=== PATIENT | female | born 1980 | race Two or more races ===

== ENCOUNTER 2025-07-09 01:11 | Emergency (ER) | payer BC, SELFPAY ==
[2025-07-09 01:11] VITALS: BMI 31.1
[2025-07-09 01:21] VITALS: BP 164/102; BP 169/106; PULSE 79; RESP 18; TEMP 36.8; O2SAT 99
[2025-07-09] MEDS: METOCLOPRAMIDE 5 MG TABLET 10 MG PO (03:06)
[2025-07-09] MEDS: SUMAtriptan INJ 6 MG/0.5 ML VIAL SC (03:10)
[2025-07-09 04:18] VITALS: BP 169/101; PULSE 75; RESP 18; TEMP 36.9; O2SAT 99
--- NOTE | 2025-07-09 05:08 | PD.EDNECK ---
ED Neck Injury Pain RME/HPI General Chief Complaint: Neck Pain/Injury Stated Complaint: NECK PAIN Time Seen by Provider: 07/09/25 02:40 Arrival date/time: 07/09/25 01:11 45F with no significant PMH presents to ED with several days of R-sided head/neck pain that is worse with movement. Patient denies fall/trauma, fevers/chills, neck swelling, and URI symptoms. Limitations: no limitations Related Data Home Medications ?Medication ?Instructions ?Recorded ?Confirmed atorvastatin 10 mg tablet 10 mg PO QDAY 01/16/19 07/01/19 ferrous fumarate 325 mg (106 mg 325 mg PO QDAY 01/16/19 07/01/19 iron) tablet metoprolol succinate 50 mg capsule 50 mg PO BID 01/16/19 07/01/19 sprinkle, ext. release 24 hr ibuprofen 800 mg tablet 800 mg PO TID PRN Pain 06/30/19 07/01/19 Previous Rx's ?Medication ?Instructions ?Recorded naproxen 500 mg tablet,delayed 500 mg PO BID PRN pain #30 tabs 01/16/19 release (EC-Naproxen) hydrocodone 5 mg-acetaminophen 325 1 tab PO Q4H PRN pain #30 tabs 07/01/19 mg tablet (Crescent) ibuprofen 600 mg tablet 600 mg PO Q6H #30 tabs 10/21/22 Allergies Allergy/AdvReac Type Severity Reaction Status Date / Time No Known Allergies Allergy Verified 07/09/25 01:11 Review of Systems Review of Systems Systems Reviewed: All systems reviewed, normal except as documented Constitutional Constitutional: Reports as per HPI and Reports headache(s) ENT Ears, Nose, Mouth, and Throat: Reports headache(s) and Reports neck pain Musculoskeletal Musculoskeletal: Reports as per HPI and Reports neck pain Neurologic Neurologic: Reports headache(s) Past Medical History Past Medical History NEUROLOGIC: Negative Neurological Disorders or Seizures CARDIAC: Positive Cardiac Disorders, Hypercholesterolemia and Hypertension; Negative Congestive Heart Failure RESPIRATORY: Negative Chronic Obstructive Pulmonary Disease (COPD) GASTROINTESTINAL: Negative Gastrointestinal Disorders or Hepatitis GENITOURINARY: Negative Genitourinary Disorders or Renal Disease REPRODUCTIVE: Positive Previous Pregnancies (X3) MUSCULOSKELETAL: Negative Musculoskeletal Disorders ENDOCRINE: Negative Endocrine Disorders, Diabetes Mellitus Type 1 or Diabetes Mellitus Type 2 HEMATOLOGIC: Positive Anemia; Negative Blood Disorders OTHER HISTORY: Positive Chicken Pox; Negative Hospitalization, Autoimmune Disease, Shingles, Falls, Blood Transfusions, Blood Transfusion Reaction, Anesthesia Reactions, Chemotherapy, Radiation Therapy, MRSA, Measles, Mumps or Cancer Family History FAMILY HISTORY: Positive Family Psychiatric Problems (MOTHER,), Family Cardiac Disorders (MOTHER (HTN,CVA)) and Family Cancer (MOTHER (THYROID)); Negative Family Respiratory Disorders, Family Gastrointestinal Problems, Family Surgery or Family Anesthesia Reaction Surgical History SURGICAL: Positive Section (X2) Social History SMOKING STATUS: Never smoker ED Exam General Limitations: Present no limitations General appearance: Present alert and in no apparent distress Head Head exam: Present atraumatic ENT ENT exam: Present normal exam, normal oropharynx and mucous membranes moist Neck Neck exam: Present normal inspection, full ROM and trachea midline Chest Chest inspection: Present normal inspection and symmetric chest wall rise Neurological Exam Neurological exam: Present alert and oriented X3 Psychiatric Psychiatric exam: Present normal affect and normal mood Skin Skin exam: Present warm, dry, intact and normal color Course Quality Measures none Orders Category Date Time Status Metoclopramide [Reglan] Med 07/09/25 02:40 Discontinued 10 mg PO X1 ONE SUMAtriptan INJ [Imitrex Inj] Med 07/09/25 02:40 Discontinued 6 mg SC X1 ONE Vital Signs Vital signs: Vital Signs Temperature 98.3 F 07/09/25 01:21 Pulse Rate 79 07/09/25 01:21 Respiratory Rate 18 07/09/25 01:21 Blood Pressure 164/102 H 07/09/25 01:21 Pulse Oximetry (%) 99 07/09/25 01:21 Oxygen Delivery Method Room Air 07/09/25 01:21 O2 at 99% on RA and WNLs Neck Pain MDM Narrative MDM Narrative:: 45F with no significant PMH presents to ED with several days of R-sided head/neck pain that is worse with movement. Patient denies fall/trauma, fevers/chills, neck swelling, and URI symptoms. Physical exam reveals no midline neck tenderness. Pain is with ROM only the R, and ROM is intact. Clear oropharynx. No neck swelling. Speech and gait normal. Patient is afebrile, calm, and alert. Migraine meds improved symptoms. [employer] Estate [employer] given. Patient data External records reviewed:: [facility] previous records Clinical information provided by:: patient Social determinants that could affect healthcare access:: none Patient has the following chronic illnesses:: none How is presenting disease/condition affected by chronic disease/condition?: no chronic disease Evaluation data The following diagnostics were reviewed and interpreted by me:: other (specify) (none) Lab and/or radiology exams considered but not ordered:: not ordered Interpretation Summary: n/a Medications / Prescriptions Medications or Prescriptions considered but not ordered:: ordered Medication administrations:: Medication Administration History Discontinued Medications Metoclopramide HCl (Metoclopramide 5 Mg Tablet) 10 mg PO X1 ONE Stop: 07/09/25 02:41 Last Admin: 07/09/25 03:06 Dose: 10 mg Documented By: MANUEL Sumatriptan Succinate (Sumatriptan Inj 6 Mg/0.5 Ml Vial) 6 mg SC X1 ONE Stop: 07/09/25 02:41 Last Admin: 07/09/25 03:10 Dose: 6 mg Documented By: MANUEL above Consultations Consultation(s) initiated? (list below): No Diagnosis Neck Differential Diagnosis: disc disorder of cervical region, whiplash injury to neck, closed subluxation of cervical spine, fracture of cervical spine without lesion of spinal cord, cervical radiculopathy, vertebral artery dissection, torticollis, cervical spondylosis, strain of neck muscle and other (VEGA and migraine and neck pain) Most likely diagnosis given after review of the tests above:: neck pain and VEGA Admission Indicated Admission indicated?: not indicated Admission Request Was there a request for admission?: No Disposition Plan Disposition Plan: Discharge Discharge Attestation Discharge Attestation: The patient and all family members were given an opportunity to ask questions and understood the discharge instructions. Discharge instructions specifically effects, indications for sooner follow up or return to the emergency department, and the expected course of current diagnosis. Patient condition: Stable Discharge Plan Plan Patient Disposition: HOME (Self Care) Discharge Disposition comment: Stable Prescriptions/Referrals Prescriptions/Med Rec: No Action metoprolol succinate 50 mg capsule,sprinkle,ER 24hr 50 mg PO BID atorvastatin 10 mg tablet 10 mg PO QDAY ferrous fumarate 325 mg (106 mg iron) tablet 325 mg PO QDAY naproxen [EC-Naproxen] 500 mg tablet,delayed release (DR/EC) 500 mg PO BID PRN (Reason: pain) Qty: 30 0RF ibuprofen 800 mg Tablet 800 mg PO TID PRN (Reason: Pain) hydrocodone-acetaminophen [Crescent] 5-325 mg tablet 1 tab PO Q4H MDD 6 PRN (Reason: pain) Qty: 30 0RF ibuprofen 600 mg tablet 600 mg PO Q6H Qty: 30 0RF Referrals: Emmanuel Lee MD [Primary Care Provider, Nephrology] - In 1 week Problem List Clinical Impression: Neck pain, Headache Patient/Caregiver Discharge Instructions Education Materials: Self-Care for Headaches, ED Neck Pain No Trauma Additional Instructions: Please follow-up with PCP within 24-48 hours and return immediately if symptoms worsen. Print Language: Romansh Stand Alone Forms: Patient Portal Info Letter PA/MEDICAL RESEARCH TECH Supervising Physician PA/MEDICAL RESEARCH TECH Supervising Physician: Dr. Weiss
== END 2025-07-09 04:27 | disposition home or self-care (01) ==
PROVIDERS: Emergency Provider Emergency Medicine; PCP Internal Medicine
DX: R51.9 Headache, unspecified (principal); M54.2 Cervicalgia
CPT/HCPCS: 96372; 99282; J3030; A9270

== ENCOUNTER → 2025-07-12 | Outpatient (CLI) | payer BC, SELFPAY ==
[2025-07-12 10:59] LABS: Collection Type, Urine Clean Catch; WBC,Urine 0 /hpf (0-5)
[2025-07-12 11:38] LABS: Bacteria,Urine Rare; Bilirubin,Urine Negative (Negative); Blood,Urine Trace (Negative); Clarity,Urine Clear (Clear/Hazy); Color,Urine Lt-Yellow (Lt Yel-Yel); Glucose, Urine Negative (Negative); Ketones,Urine Negative (Negative); Leukocyte Esterase,Urine Negative (Negative); Nitrite,Urine Negative (Negative); PH,Urine 6.5 (5.0-7.0); Protein,Urine Negative (Neg - Trace); RBC,Urine 2 /hpf (0-3); Specific Gravity,Urine 1.014 (1.001-1.035); Squamous Epithelial Cell,Urine 6 /hpf (0-5); Urobilinogen,Urine Negative mg/dL (0.0-1.0)
[2025-07-12 13:31] LABS: Alanine Aminotransferase 17 U/L (10-49); Albumin, Serum 5.1 gm/dL (3.5-5.0); Albumin/Globulin Ratio 2.0 (1.2-2.2); Alkaline Phosphatase 56 U/L (46-116); Anion Gap 8 (7-16); Aspartate Amino Transferase 21 U/L (0-34); BUN/Creatinine Ratio 20 Ratio (12-20); Bilirubin,Total 0.7 mg/dL (0.3-1.2); Blood Urea Nitrogen 16 mg/dL (9-23); Calcium 9.2 mg/dL (8.3-10.6); Calcium (Corrected) 9.2 mg/dL (8.5-10.1); Carbon Dioxide 28.7 mMol/L (20.0-31.0); Chloride 103 mMol/L (98-107); Creatinine (Component) 0.8 mg/dL (0.6-1.3); Free T3 2.8 pg/mL (2.3-4.2); Free T4 (Free Thyroxine) 1.20 ng/dL (0.89-1.76); Globulin 2.5 gm/dL (2.3-3.5); Glucose 89 mg/dL (74-106); Osmolality,Calculated 279 (275-295); Potassium 3.6 mMol/L (3.4-5.1); Sodium 140 mMol/L (136-145); Thyroid Stimulating Hormone 0.85 uIU/mL (0.55-4.78); Total Protein 7.6 gm/dL (5.7-8.2); Uric Acid 5.3 mg/dL (3.1-7.8); eGFR > 60 See Note
[2025-07-12 14:31] LABS: Glucose Estimated Average 111 mg/dL (80-131); Hemoglobin A1C 5.5 % Hgb (4.8-6.0)
[2025-07-12 14:34] LABS: Cardiac Risk Estimate 5.7 RATIO (3.7-5.6); Cholesterol 263 mg/dL (132-200); HDL Cholesterol 46 mg/dL (40-60); LDL Cholesterol,Calculated 192 mg/dL (0-130); Triglycerides 126 mg/dL (30-150)
[2025-07-12 14:40] LABS: Ferritin 120 ng/mL (7.3-270.7)
[2025-07-12 14:44] LABS: Follicle Stimulating Hormone 4.98 mIU/mL (See Note); Vitamin B12 897 pg/mL (211-911); Vitamin D 25 Hydroxy Total 51.5 ng/mL (7.3-40.2)
[2025-07-19 06:57] LABS: Estrogen, Total, Serum* 123 pg/mL; Luteinizing Hormone* 8.5 mIU/mL; Progesterone,LC/MS* <0.1 ng/mL; Sex Hormone Binding Globulin* 34 nmol/L (17-124)
== END | disposition home or self-care (01) ==
PROVIDERS: PCP Internal Medicine; Referring Provider Internal Medicine; Visit Provider Internal Medicine
DX: Z00.00 Encounter for general adult medical examination without abnormal findings (principal); I10 Essential (primary) hypertension; E78.5 Hyperlipidemia, unspecified
CPT/HCPCS: 36415; 80053; 80061; 81001; 82306; 82607; 82672; 82728; 83001; 83002; 83036; 84144; 84270; 84439; 84443; 84481; 84550